=== PATIENT | female | born 1970 | race Caucasian/White ===

== ENCOUNTER 2017-04-02 09:48 | Emergency (ER) | payer OTHER ==
[2017-04-02 10:01] VITALS: BP 127/77
--- NOTE | 2017-04-02 10:13 | ED Physician Documentation ---
History of Present Illness - Stated complaint Stated Complaint: R HAND PX - Chief complaint Chief Complaint: Ext Problem - History obtained from History obtained from: Patient - History of Present Illness Timing: Prior to arrival - Additonal information Additional information: Patient is a pleasant right-hand dominant female with history of rheumatoid arthritis on Enbrel and methotrexate. She presents with a complaint of pain to her dominant right hand. The pain is over the metacarpophalangeal joint. Pain is worse with movement and better with rest. She sustained injury to hand yesterday when she nearly fell and use her hand to write her. The exact mechanism of the injury is unknown. She denies any other pain or injury to anywhere else on her body. Review of Systems Constitutional: denies: Fever, Chills Eyes: denies: Loss of vision, Decreased vision Ears: denies: Loss of hearing, Tinnitus/ringing Nose: denies: Rhinorrhea / runny nose, Foreign Body Throat: denies: Oral lesions / sores, Swallowed foreign body, Reviewed and negative Cardiac: denies: Chest pain / pressure, Palpitations, Pedal edema, Calf pain GI: denies: Nausea, Vomiting Musculoskeletal: reports: Extremity pain, Joint pain, Extremity swelling, Joint swelling. denies: Neck pain, Back pain Neurologic: denies: Generalized weakness, Focal weakness PD PAST MEDICAL HISTORY - Past Medical History Past Medical History: Yes Musculoskeletal: Rheumatoid arthritis - Past Surgical History Past Surgical History: Yes /[employer]: section - Present Medications Home Medications: Ambulatory Orders Medication Instructions Recorded Confirmed Bcp 04/02/17 Etanercept [Enbrel] 50 mg IM 04/02/17 Folic Acid 1 mg PO DAILY 04/02/17 04/02/17 Loratadine 10 mg PO DAILY 04/02/17 04/02/17 Methotrexate Sodium [Trexall] 20 mg PO 04/02/17 Tramadol HCl 50 mg PO Q8HR PRN #14 tablet 04/02/17 - Allergies Allergies/Adverse Reactions: Allergies Allergy/AdvReac Type Severity Reaction Status Date / Time No Known Drug Allergies Allergy Verified 04/02/17 10:01 - Social History Does the pt smoke?: No Smoking Status: Never smoker PD ED PE NORMAL - Vitals Vital signs reviewed: Yes - General General: Alert and oriented X 3, No acute distress - HEENT HEENT: PERRL - Neck Neck: Supple, no meningeal sign - Cardiac Cardiac: RRR, No murmur - Respiratory Respiratory: Clear bilaterally - Abdomen Abdomen: Normal bowel sounds, Soft, Non tender, Non distended - Derm Derm: Warm and dry - Extremities Extremities: No deformity, Other (Mild erythema and warmth over the right metacarpal phalangeal joint on the dorsum) - Neuro Neuro: Alert and oriented X 3 - Psych Psych: Normal mood, Normal affect Results - Vitals Vitals: Vital Signs - 24 hr 04/02/17 09:58 Temperature 36.9 C Heart Rate 85 Respiratory 18 Rate Blood Pressure 127/77 O2 Saturation 97 Oxygen O2 Source Room air PD MEDICAL DECISION MAKING - ED course ED course: Patient is a pleasant 47-year-old female [id number] who presents with right hand pain after an injury yesterday. There is some redness and swelling around the right knuckle without evidence of infection or breach in skin. Radiographically the hand looks normal. Ligamentous testing is normal. I suspect more likely than not it is a contusion or perhaps a little flare of RA. This was discussed with the patient she agrees to rest it, relaxant and follow -up with her physician Patient is a pleasant 47-year-old female right-hand- dominant who presents with right hand pain after an injury yesterday. There is some redness and swelling around the right knuckle without evidence of infection or breach in skin. Radiographically the hand looks normal. Ligamentous testing is normal. I suspect more likely than not it is a contusion or perhaps a little flare of RA. This was discussed with the patient she agrees to rest it, Elevate it, and follow-up with her physician. Disposition: To home Clinical impression: 1. Right second MCP contusion Departure - Departure Disposition: 01 Home, Self Care Clinical Impression: Pain in extremity Qualifiers: Extremity pain location: upper extremity Condition: Good Prescriptions: Tramadol HCl 50 mg PO Q8HR PRN #14 tablet PRN Reason: Pain
--- NOTE | 2017-04-02 12:24 | XRAY Preliminary Report ---
Exam: XR Hand 3 View RT Impression: No evidence of an acute fracture or dislocation. 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 [facility] SITE ID: [id number]
--- NOTE | 2017-04-02 12:26 | XRAY Report ---
EXAM: RIGHT HAND RADIOGRAPHY EXAM DATE: 04/02/2017 11:03 AM. CLINICAL HISTORY: Injury. COMPARISON: None. TECHNIQUE: 3 views. FINDINGS: There appears to be an old nonunited fracture involving the ulnar styloid process. No other fracture is identified. The joint spaces are well preserved. No radiopaque foreign body is seen. Impression: No evidence of an acute fracture or dislocation. 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 [facility] Referring Provider Line: [phone] SITE ID: [id number]
== END 2017-04-02 13:38 | disposition home or self-care (01) ==
LOC: ED 09:48
DX: M79.641 Pain in right hand (principal); M06.9 Rheumatoid arthritis, unspecified
CPT/HCPCS: 99283